=== PATIENT | male | born 1970 | race Caucasian/White ===

== ENCOUNTER → 2020-01-16 | Outpatient (CLI) | payer OTHER | END | disposition home or self-care (01) | LOC: MAMO-SONO 10:45 | PROVIDERS: ATTEND General Practice | DX: E66.01 Morbid (severe) obesity due to excess calories (principal); M25.511 Pain in right shoulder; M25.562 Pain in left knee ==

== ENCOUNTER 2020-04-25 12:49 | Outpatient (CLI) | payer OTHER | END 2020-04-25 13:00 | disposition home or self-care (01) | LOC: RAD 12:49 | PROVIDERS: ATTEND Orthopaedic Surgery | DX: M54.5 Low back pain (principal); M48.061 Spinal stenosis, lumbar region without neurogenic claudication ==

== ENCOUNTER → 2020-05-28 | Outpatient (CLI) | payer OTHER | END | disposition home or self-care (01) | LOC: MRI 10:05 | PROVIDERS: ATTEND General Practice | DX: M24.111 Other articular cartilage disorders, right shoulder (principal); M25.111 Fistula, right shoulder; M75.51 Bursitis of right shoulder; M75.91 Shoulder lesion, unspecified, right shoulder | CPT/HCPCS: 73221 ==

== ENCOUNTER 2021-08-19 09:53 | Outpatient (CLI) | payer OTHER | END 2021-08-20 16:10 | disposition home or self-care (01) | LOC: MRI 09:53 | PROVIDERS: ATTEND Orthopaedic Surgery Sports Medicine | DX: S83.242A Other tear of medial meniscus, current injury, left knee, initial encounter (principal); M25.562 Pain in left knee; M19.011 Primary osteoarthritis, right shoulder; M25.511 Pain in right shoulder | CPT/HCPCS: 73221; 73721 ==